=== PATIENT | female | born 1990 | race Caucasian/White ===

== ENCOUNTER 2017-05-24 02:23 | Emergency (ER) | payer SELFPAY ==
--- NOTE | 2017-05-24 03:20 | EDPHY ---
H & P Stated Complaint: med clearance for detention Time Seen by Provider: 05/24/17 03:13 HPI/ROS: Chief Complaint: Meth use, medical clearance HPI: 26-year-old woman being brought in for medical clearance for detention. Patient admits to using meth several times today. She is currently feeling paranoid and having hallucinations. Denies any suicidal thoughts. Is not feeling homicidal. Denies any pain or any other injuries. ROS: 10 point Review of Systems is negative except as noted in the HPI. PMH: Denies Social History: Positive smoking, positive alcohol, positive methamphetamine use Family History: non-contributory Physical Exam: Gen: Awake, Alert, No Distress, mildly agitated HEENT: Nose: no rhinorrhea Eyes: PERRLA, EOMI Mouth: Moist mucosa Neck: Supple, no JVD Chest: nontender, lungs clear to auscultation Heart: S1, S2 normal, no murmur Abd: Soft, non-tender, no guarding Back: no CVA tenderness, no midline tenderness Ext: no edema, non-tender Skin: no rash Neuro: CN II-XII intact, Sensation grossly intact, Strength 5/5 in bilateral upper and lower extremities - Personal History Current Tetanus/Diphtheria Vaccine: Unsure Current Tetanus Diphtheria and Acellular Pertussis (TDAP): Unsure - Medical/Surgical History Hx Asthma: No Hx Chronic Respiratory Disease: No Hx Diabetes: No Hx Cardiac Disease: No Hx Renal Disease: No Hx Cirrhosis: No Hx Alcoholism: No Hx HIV/AIDS: No Hx Splenectomy or Spleen Trauma: No - Social History Smoking Status: Current every day smoker Constitutional: Initial Vital Signs Temperature (C) 36.4 C 05/24/17 02:24 Heart Rate 71 05/24/17 02:24 Respiratory Rate 16 05/24/17 02:24 Blood Pressure 113/85 H 05/24/17 02:24 O2 Sat (%) 99 05/24/17 02:24 O2 Delivery Mode Room Air Allergies/Adverse Reactions: No Known Allergies Allergy (Unverified 05/24/17 02:26) Medical Decision Making ED Course/Re-evaluation: 26-year-old woman being brought in for medical clearance after methamphetamine use. Patient is appropriate and answering questions. She is mildly paranoid but is not suicidal or homicidal at this time. She can have a mental health evaluation in the detention as needed. Otherwise she is medically clear. Departure - Departure Disposition: Home, Routine, Self-Care Clinical Impression: Methamphetamine abuse Condition: Good Instructions: Methamphetamine Abuse (ED) Additional Instructions: MEDICALLY CLEAR FOR LONG-TERM Referrals: NONE *PRIMARY CARE P,. [Primary Care Provider] - As per Instructions
[2017-05-24 03:40] VITALS: BP 109/81; PULSE 106; RESP 18; TEMP 97.3; O2SAT 98
== END 2017-05-24 03:41 | disposition home or self-care (01) ==
LOC: EEVIPCON 02:23
DX: F15.10 Other stimulant abuse, uncomplicated (principal); F17.200 Nicotine dependence, unspecified, uncomplicated